=== PATIENT | female | born 1940 | race Two or more races ===

== ENCOUNTER → 2017-02-10 | Outpatient (CLI) | payer OTHER ==
--- NOTE | ~2017-02-10 | MY27 ---
[facility] A Service of [facility] RADIOLOGY TEXT RESULTS PATIENT: JESUS KHAN LOCATION: [facility] : 44 UNIT #: [id number] AGE: [address]: Rick Shields MD SEX: F ORDER DR: [id number] [facility] [address]. [place], [place] [address] [id number] O MR#: [id number] Acc #: [id number] NAME: JESUS KHAN : 1940 SEX: F STUDY DATE/TIME: 02/10/2017 16:37 UNIT: [facility] ROOM: STUDY DESCRIPTION: MY MEMO SCREEN W/ CAD UNI LT Attending Physician: Rick Shields M.D. Ordering Physician: Rick Shields M.D. Primary Care Physician: Rick Shields M.D. MEDICAL IMAGING REPORT This report is preliminary unless electronic signature is present EXAM Unilateral digital left screening mammogram, 02/10/2017, [facility]. HISTORY 77-year-old female with prior right lumpectomy followed by mastectomy and adjuvant chemotherapy year 1999. Annual screen. COMPARISON Prior outside mammogram [facility], 03/28/2015. TECHNIQUE Digital imaging of the left breast was completed utilizing two-view screening protocol. Review includes FDA-approved CAD device. FINDINGS Breast parenchyma is predominantly fatty replaced and stable. There is no interval occurring mass. I see no suspicious microcalcifications and no architectural distortion. IMPRESSION Negative unilateral left mammogram. Status post right mastectomy. Annual screening recommended. Patients over the age of 40 are entered into a reminder system with target due date for the next mammogram. A result letter will also be sent to the patient. BIRADS: 1 Negative Dictated by... [facility] A Service [facility] RADIOLOGY TEXT RESULTS PATIENT: JESUS KHAN LOCATION: [facility] : 44 UNIT #: [id number] AGE: [address]: Rick Shields MD SEX: F ORDER DR: Pj Mir M.D. THIS IS AN ELECTRONICALLY VERIFIED REPORT Pj Mir M.D. at 02/12/2017 10:55 AM TOMASA/priscilla TD: 02/12/2017 10:32 JOB #: [id number] MEDICAL IMAGING REPORT Page 1 of 1 COPY
== END | disposition home or self-care (01) ==
LOC: CWCC 16:15
DX: Z12.31 Encounter for screening mammogram for malignant neoplasm of breast (principal); Z85.3 Personal history of malignant neoplasm of breast; Z90.11 Acquired absence of right breast and nipple
CPT/HCPCS: G0202